=== PATIENT | female | born 1990 | race American Indian/Alaskan Native ===

== ENCOUNTER 2017-01-01 04:41 | Emergency (ER) | payer SELFPAY ==
[2017-01-01 04:50] VITALS: BP 104/75
== END 2017-01-01 08:52 | disposition left against medical advice (07) ==
LOC: ED 04:41
DX: K08.89 Other specified disorders of teeth and supporting structures (principal); H92.02 Otalgia, left ear; Z53.21 Procedure and treatment not carried out due to patient leaving prior to being seen by health care provider